=== PATIENT | female | born 1960 | race Caucasian/White ===

== ENCOUNTER → 2018-01-16 | Outpatient (CLI) | payer SELFPAY ==
[~2018-01-16] MED LIST: ASPI-1471 PO; DIPH-740 PO; LEVO50TA86 PO; LEVO75TA73 PO; METO-1 PO; MONT10TA PO; MULT-1372 PO; NIT4 SL; PYRI50CA PO; TRAM-420 PO
== END ==
LOC: AMB 10:10
PROVIDERS: ATTEND Nurse Practitioner
DX: M79.602 Pain in left arm (principal); R68.84 Jaw pain; R42 Dizziness and giddiness; R53.1 Weakness; R11.0 Nausea
CPT/HCPCS: A0425; A0427